=== PATIENT | female | born 1980 | race African-American/Black ===

== ENCOUNTER 2022-06-27 15:26 | Outpatient (CLI) | payer BC | END 2022-06-27 15:27 | disposition home or self-care (01) | LOC: CSHMAMMO 15:26 | PROVIDERS: ATTEND Obstetrics & Gynecology | DX: Z12.31 Encounter for screening mammogram for malignant neoplasm of breast (principal) | CPT/HCPCS: 77063; 77067 ==

== ENCOUNTER 2023-11-04 11:10 | Outpatient (CLI) | payer BC | END 2023-11-04 11:11 | disposition home or self-care (01) | LOC: CSHMAMMO 11:10 | PROVIDERS: ATTEND Obstetrics & Gynecology | DX: Z12.31 Encounter for screening mammogram for malignant neoplasm of breast (principal); N64.89 Other specified disorders of breast | CPT/HCPCS: 77063; 77067 ==

== ENCOUNTER 2023-11-12 08:37 | Outpatient (CLI) | payer BC | END 2023-11-12 08:38 | disposition home or self-care (01) | LOC: CSHMAMMO 08:37 | PROVIDERS: ATTEND Obstetrics & Gynecology | DX: Q83.8 Other congenital malformations of breast (principal) | CPT/HCPCS: G0279 ==